=== PATIENT | female | born 1965 | race Caucasian/White ===

== ENCOUNTER → 2018-01-26 08:07 | Outpatient (CLI) | payer OTHER, SELFPAY ==
[2018-01-26 10:18] LABS: Absolute Lymphocyte Count 1.08 X10^3/ul (0.83-4.51); Absolute Neutrophil Count 3.1 X10^3/uL (2.0-7.7); Basophil# 0.02 X10^3/uL; Basophil% 0.4 % (0-1); Eosinophils% 2.1 % (0-5); Hematocrit 40.5 % (37-47); Hemoglobin 13.7 g/dl (12.0-15.0); Lymphocyte # 1.08 X10^3/ul (4.0); Lymphocyte % 22.2 % (19-41); Mean Corp Hgb Conc 33.8 g/gl (32-36); Mean Corpuscular Hgb 30.1 pg (27.0-32.0); Mean Platelet Vol. 9.8 fl (6.2-12.0); Monocyte# 0.56 X10^3/uL; Monocyte% 11.5 % (0-10); Neutrophil % 63.6 % (47-70); Platelet Count 392 K/mm3 (150-450); Red Blood Count 4.55 M/mm3 (4.2-5.4); White Blood Count 4.9 K/mm3 (4.4-11.0)
[2018-01-26 10:22] LABS: POSITIVE COUNT NO; POSITIVE DIFFERENTIAL NO; POSITIVE MORPHOLOGY NO
[2018-01-26 10:27] LABS: ALB/GLOB Ratio 0.8 RATIO (0.9-2.4); AST(SGOT) 15 U/L (15-37); Alanine Aminotransfer ALT/SGPT 19 U/L (13-56); Albumin, Serum 3.4 g/dL (3.2-5.0); Alkaline Phosphatase 61 U/L (45-117); Anion Gap 7 (5-15); BUN 15 mg/dL (7-18); BUN/Creat Ratio 13.9 RATIO (10-20); Calcium,Total 8.7 mg/dL (8.5-10.1); Chloride 105 mmol/L (98-107); Creatinine, Serum 1.08 mg/dL (0.55-1.02); EST Glomerular Filtration Rate 57 mL/min (>60); Est Glom Filt Rate - Afr Amer 69 mL/min (>60); Globulin 4.1 g/dL (2.2-4.2); Glucose 78 mg/dL (74-106); Potassium 3.5 mmol/L (3.5-5.1); Protein, Total 7.5 g/dL (6.4-8.2); Sodium Level 137 mmol/L (136-145)
== END ==
PROVIDERS: Family Provider Family Medicine; PCP Family Medicine; Visit Provider Family Medicine
DX: R10.12 Left upper quadrant pain (principal); I10 Essential (primary) hypertension
CPT/HCPCS: 36415; 80053; 85025

== ENCOUNTER → 2018-07-06 08:42 | Outpatient (CLI) | payer OTHER, SELFPAY ==
[2018-07-06 11:12] LABS: Anion Gap 9 (5-15); BUN 14 mg/dL (7-18); BUN/Creat Ratio 12.3 RATIO (10-20); Calcium,Total 8.8 mg/dL (8.5-10.1); Chloride 102 mmol/L (98-107); Cholesterol 221 mg/dL (200); Creatinine, Serum 1.14 mg/dL (0.55-1.02); EST Glomerular Filtration Rate 53 mL/min (>60); Est Glom Filt Rate - Afr Amer 64 mL/min (>60); Glucose 90 mg/dL (74-106); High Density Lipoprotein 53 mg/dL; Sodium Level 137 mmol/L (136-145); Triglycerides 149 mg/dL; Very Low Density Lipoprotein 30 mg/dL (5-40)
== END ==
PROVIDERS: Family Provider Family Medicine; PCP Family Medicine; Referring Provider Family Medicine; Visit Provider Family Medicine
DX: B35.1 Tinea unguium (principal); E78.00 Pure hypercholesterolemia, unspecified
CPT/HCPCS: 36415; 80048; 80061

== ENCOUNTER 2019-02-07 13:36 | Emergency (ER) | payer OTHER, SELFPAY ==
[2019-02-07 13:37] VITALS: BP 165/90; PULSE 66; RESP 16; TEMP 36.6; O2SAT 99; BMI 37.6
--- NOTE | 2019-02-07 14:14 | CT_ITS ---
STUDY: CT BRAIN WITHOUT CONTRAST REASON FOR EXAM: Female, 53 years old. Dizziness, recent fall RADIATION DOSAGE (If Supplied By Facility): CTDIvol = ( 44.99 ) mGy, DLP = ( 711.75 ) mGycm TECHNIQUE: Transaxial CT imaging of the brain was performed without administration of intravenous contrast material. Individualized dose optimization techniques were used for this CT. COMPARISON: No relevant priors. FINDINGS: Normal soft tissue structures. Normal calvarium. Normal size ventricles and extra-axial spaces for the patient's age. Normal white matter tracts of the cerebral hemispheres. Normal basal ganglia and thalami. Normal brainstem. Normal cerebellum. There is no intracranial hemorrhage. There are no findings of an acute ischemic infarction. Normal visualized paranasal sinuses. CT/Brain/Head without Contrast IMPRESSION: Normal unenhanced CT scan of the brain. Electronically Signed: Johny Syed MD at 15:03 EDT , Service support ,
--- NOTE | 2019-02-07 14:14 | EKG12_ITS ---
Test Reason : DIZZINESS Blood Pressure : / mmHG Vent. Rate : 064 BPM Atrial Rate : 064 BPM P-R Int : 170 ms QRS Dur : 090 ms QT Int : 394 ms P-R-T Axes : 029 -21 -11 degrees QTc Int : 406 ms Normal sinus rhythm Nonspecific T wave abnormality Poor R-Wave Progression Abnormal ECG Confirmed by NELLI BAZAN, BATSHEVA ([id number]), videotape editor REYES RAMOS ([id number]) on 02/10/2019 9:11:07 AM Referred By: YEMI Confirmed By:BATSHEVA AIKEN MD
--- NOTE | 2019-02-07 14:21 | PCA ---
NO OLD EKG
--- NOTE | 2019-02-07 14:28 | ED.VIS.GEN ---
History of Present Illness Chief Complaint: Dizziness Informant: Patient, Family Onset: Today Timing: Intermittent Quality: dizzy Location: head Current Severity: Mild Maximum Severity: Severe Worsened by: lying down Relieved by: nothing in particular Narrative: Patient felt dizzy today. It was episodic. The first episode was while she was sitting at a campground picnic table playing cards. She does not remember turning her head or any other position changes or anything else to trigger the symptoms. They gradually went away. [place] like spinning. She later laid down and had another episode of spinning and felt that she was going to blackout/have syncope. She had no thoracic symptoms or palpitations. No headache, earache, tinnitus, otorrhea, no nausea/vomiting/abdominal pain/diarrhea. No recent URI in the last month or so. No hospitalization or surgery recently. No other recent illnesses or medication additions/changes. She is a relatively poor historian and her answers most questions for her. She has no reason to feel dehydrated recently. - Past Medical History (1) Polycystic kidney disease Status: Chronic (2) Hypertension Status: Chronic Past Medical History - Allergies and Home Meds Allergies/Adverse Reactions: Allergies No Known Allergies Allergy (Verified 02/07/19 13:37) Primary Care Physician: Ede Meier MD [Primary Care Provider] - Smoking Status: Never smoker Review of Systems General: Reports: Malaise, - - dizzy; see HPI. Denies: Chills, Fever, Sweats Eyes: Denies: Visual changes - bilaterally, Diplopia ENT: Denies: Bilateral ear pain, Rhinorrhea, Sore throat Cardiovascular: Denies: Chest pain, Palpitations, Heart racing Respiratory: Denies: Dyspnea, Cough, Dyspnea on exertion Gastrointestinal: Denies: Abdominal pain, Nausea, Vomiting, Diarrhea, Melena, Hematochezia Genitourinary: Denies: Dysuria, Hematuria, Frequency Musculoskeletal: Reports: Swelling - BLE chronic. Denies: Back pain, Extremity Pain Skin: Denies: Rash, Wounds Neurological: Denies: Headache, Weakness, Numbness Physical Exam Vital Signs/Narrative: Vital Signs Temp Pulse Resp BP Pulse Ox 02/07/19 13:37 97.8 F 66 16 165/90 H 99 Inital Vital Signs reviewed: Yes General: Well nourished, Well developed, No Acute Distress Head: Normocephalic, Atraumatic Eyes: Perrl, EOMI, - - no nystagmus -- horiz, vert, or rotatory ENT: Moist mucous membranes, No rhinorrhea, TM's clear Neck: Supple, Nontender Cardiovascular: Regular rate, Regular rhythm, No murmurs, Normal S1, Normal S2. Negative for: Tachycardia Respiratory: No distress, CTA bilaterally, Chest nontender Abdomen: Soft, Nontender, Nondistended, Normal bowel sounds Back: Nontender, Normal Inspection Extremities: Nontender, Edema - nonpitting, BLE, symmetric. Negative for: Calf Tenderness Skin: Normal color, No rash, No Trauma Neurological: Alert, Oriented x3, Cranial nerves II-XII grossly intact, Normal Strength, Normal Sensation, Normal DTR, - - nml HTS and FTN bilat Psychological: Normal affect, Normal Mood Diagnostic/Tx/Re-eval - Rhythm Strip Rhythm Strip: Sinus Rhythm Rate: 65 Ectopy: None - EKG Initial EKG Interpretation: Sinus Rhythm, No Acute Injury Pattern, Non-Specific ST Changes - Diffuse - Medical Decision Making Patient was given meclizine and IV fluids. Orthostatics were negative. The rest of her work-up is negative including EKG and troponin. On reevaluation she feels better. I laid her down and did a [place] and it was negative both sides, we walked her and it was asymptomatic. She was offered admission but prefers to go home and I think that is fine. Could be peripheral vertigo, I am less suspicious of central vertigo although the history is fairly vague. Will prescribe her meclizine and advised she follow-up for persistent symptoms or return to the ER and they are comfortable with this plan. ED Disposition - Plan for ED Patient: Disposition: Home or Assisted Living Diagnosis: Vertigo Instructions: ED Vertigo Unspecified Prescriptions: Meclizine HCl [Antivert] 25 mg PO 4X/DAY PRN PRN #20 tab PRN Reason: Dizziness Referrals: Ede Meier MD [Primary Care Provider] - 3-5 Days if not improving
[2019-02-07 14:31] LABS: Absolute Lymphocyte Count 1.31 X10^3/ul (0.83-4.51); Absolute Neutrophil Count 3.9 X10^3/uL (2.0-7.7); Basophil# 0.02 X10^3/uL; Basophil% 0.3 % (0-1); Eosinophil# 0.19 X10^3/uL; Eosinophils% 3.1 % (0-5); Hematocrit 40.3 % (37-47); Hemoglobin 13.5 g/dl (12.0-15.0); Lymphocyte # 1.31 X10^3/ul (4.0); Lymphocyte % 21.3 % (19-41); Mean Corp Hgb Conc 33.5 g/gl (32-36); Mean Corpuscular Hgb 29.7 pg (27.0-32.0); Mean Corpuscular Volume 88.8 fL (81-99); Mean Platelet Vol. 9.2 fl (6.2-12.0); Monocyte% 11.4 % (0-10); Neutrophil # 3.92 X10^3/uL (2.7-7.7); Neutrophil % 63.7 % (47-70); POSITIVE COUNT NO; POSITIVE DIFFERENTIAL NO; POSITIVE MORPHOLOGY NO; Platelet Count 361 K/mm3 (150-450); RBC Distribution Width CV 12.9 % (11.6-14.6); RBC Distribution Width SD 41.3 fl (35.1-43.9); Red Blood Count 4.54 M/mm3 (4.2-5.4); White Blood Count 6.2 K/mm3 (4.4-11.0)
[2019-02-07 14:45] LABS: Anion Gap 6 (5-15); BUN 20 mg/dL (7-18); BUN/Creat Ratio 18.5 RATIO (10-20); Calcium,Total 8.5 mg/dL (8.5-10.1); Chloride 105 mmol/L (98-107); Creatinine, Serum 1.08 mg/dL (0.55-1.02); EST Glomerular Filtration Rate 57 mL/min (>60); Est Glom Filt Rate - Afr Amer 68 mL/min (>60); Estimated Creatinine Clearance 48.19 ml/min; Glucose 86 mg/dL (74-106); Potassium 3.8 mmol/L (3.5-5.1); Sodium Level 138 mmol/L (136-145)
[2019-02-07] MEDS: Meclizine HCl 25 MG Tablet PO (14:45)
[2019-02-07] MEDS: 0.9% Normal Saline 1,000 ML 999 ML IV (14:45)
[2019-02-07 15:25] VITALS: BP 134/83; BP 151/97; BP 164/93; PULSE 62; PULSE 67; PULSE 69
[2019-02-07 18:30] VITALS: BP 128/90; PULSE 67; RESP 17; O2SAT 97
== END 2019-02-07 18:31 | disposition home or self-care (01) ==
PROVIDERS: Emergency Provider Emergency Medicine; Family Provider Family Medicine; PCP Family Medicine
DX: R42 Dizziness and giddiness (principal); Q61.3 Polycystic kidney, unspecified; I10 Essential (primary) hypertension; Z79.899 Other long term (current) drug therapy
CPT/HCPCS: 70450; 80048; 84484; 85025; 93005; 99285; A4216

== ENCOUNTER → 2019-03-15 16:56 | Outpatient (CLI) | payer OTHER, SELFPAY ==
[2019-03-15 17:22] LABS: Hematocrit 40.7 % (37-47); Hemoglobin 13.9 g/dl (12.0-15.0); Mean Corp Hgb Conc 34.2 g/gl (32-36); Mean Corpuscular Hgb 30.1 pg (27.0-32.0); Mean Corpuscular Volume 88.1 fL (81-99); Mean Platelet Vol. 9.5 fl (6.2-12.0); Platelet Count 351 K/mm3 (150-450); RBC Distribution Width CV 13.2 % (11.6-14.6); RBC Distribution Width SD 42.7 fl (35.1-43.9); Red Blood Count 4.62 M/mm3 (4.2-5.4); White Blood Count 5.1 K/mm3 (4.4-11.0)
[2019-03-15 17:32] LABS: Scan Indicated on CBC? Y/N NO
[2019-03-15 18:11] LABS: Thyroid Stim Hormone (TSH) 1.79 uIU/mL (0.358-3.74)
== END ==
PROVIDERS: Visit Provider Obstetrics & Gynecology
DX: N92.0 Excessive and frequent menstruation with regular cycle (principal)
CPT/HCPCS: 36415; 84443; 85027

== ENCOUNTER → 2019-03-31 07:39 | Outpatient (CLI) | payer OTHER, SELFPAY ==
[2019-03-31 10:43] LABS: BUN 16 mg/dL (7-18); Creatinine, Serum 1.23 mg/dL (0.55-1.02); EST Glomerular Filtration Rate 49 mL/min (>60); Est Glom Filt Rate - Afr Amer 59 mL/min (>60)
== END ==
PROVIDERS: Family Medicine; Family Provider Family Medicine; PCP Family Medicine; Referring Provider Family Medicine; Visit Provider Family Medicine
DX: Q61.2 Polycystic kidney, adult type (principal)
CPT/HCPCS: 36415; 82565; 84520

== ENCOUNTER 2019-04-14 10:49 | Day surgery (SDC) | payer OTHER, SELFPAY ==
--- NOTE | 2019-03-20 01:22 | PCM.HPOB.BLA ---
History and Physical Date of Admission: 04/14/19 HISTORY OF PRESENT ILLNESS: Marni Tomas, a 53 year old female 2 0 1 0 2, presented for: -- GynProblem-Estab Pt Marni is here for discussion of irregular bleeding. Reports menses had been monthly and regular until about 3 months ago when she started spotting/bleeding prior to menses and bleeding has been prolonged and irregular. She denies any pain or cramping with this. States she works a lot of hours and drives 70 minutes to and from work. LMT -- heavy menses which began 3 months ago. Marni claims it started suddenly and has been present 12 weeks. It is located in the uterus. Severity is mild. An associated sign and symptom is irregular bleeding. As above. Here for evaluation of heavy bleeding and clotting. She has had regular, monthly periods and has not skipped any cycles. In the last three months the bleeding has been heavier and more prolonged. She is past due for pap, last in 2014. No labs done yet to evaluate for anemia, menopause or thyroid disorder. Reviewed diff dx of heavy and irregular periods. May be due to perimenopause. Recommend labs today: CBC and TSH if not done recently Discussed options for management of the issue. Needs further evaluation. SONO results from today reviewed: UTERUS: 8.5 x 5.1 x 4.5 cm. ENDOMETRIAL ECHO: 1.3 cm. (thickened) RIGHT OVARY: 2.7 x 1.8 x 1.7 cm and contains a 1.8 x 1.4 x 1.6 cm simple cyst. LEFT OVARY: Not seen and adnexa appears normal. EB ALLERGIES: NKDA MEDICATIONS HISTORY: Patient is also takin. lisinopril 10 mg tablet, 1 tab once daily REVIEW OF SYSTEMS: GENERAL - Denies fever, or chills SKIN - Denies skin changes EYES - Denies visual changes EARS - Denies difficulty hearing NOSE - Denies nasal congestion or bleeding MOUTH - Denies sore throat or difficulty swallowing NECK - Denies pain or swelling RESPIRATORY - Denies shortness of breath or wheezing CARDIOVASCULAR - Denies palpitations or chest pain GASTROINTESTINAL - Denies nausea, vomiting, diarrhea, constipation GENITOURINARY - heavy, irregular bleeding MUSCULOSKELETAL - Denies joint or muscle pain NEUROLOGICAL - Denies localized numbness or weakness PSYCHIATRIC - Denies depression or anxiety ENDOCRINE - Denies heat or cold intolerance, weight loss or gain HEMATO-IMMUNOLOGIC - Denies excessive bleeding with cuts PAST HISTORY: Breast/Ovarian/Colon Cancers - Maternal Grandmother had Colon Cancer Infections - Chicken pox Illnesses - none Accidents - no injuries of consequence History of Abnormal PAPS - Denies Hospitalizations - None by ; SURGICAL HISTORY: 1. 08/22/2006 Shannan Guzmán M.D. Prior 2. d and c 2004 for blighted ovum 3. , 12/14 Shannan Guzmán M.D. FTP MENSTRUAL HISTORY: LMP Known?- Approximate-Month Known Amount/Duration - 8-10, Regularity - Irregular, Frequency - monthly days, LMP - 02/27/19, Age Onset Menarche - 12 PAST PREGNANCIES: Total Pregnancies - 3; Full Term Pregnancies - 2; Premature - 0; Abortions, Induced - 0; Abortions, Spontaneous - 1; Ectopics - 0; Multiple Births - 0; Living Children - 2 FAMILY HISTORY: Father - FH: Hypertension; Father - Renal disorder; Father - Age 52, Brain disorder; Brother - FH: Polycystic kidney; Brother - FH: Hypertension; Sister - FH: Hypertension; Sister - FH: Polycystic kidney; Maternal Grandparent - FH: Cancer of colon; Maternal Grandparent - FH: Diabetes mellitus type 2; Maternal Grandparent - FH: Hypertension; SOCIAL HISTORY: Alcohol Use - RARELY Smoking - used to smoke but quit Diet - no special diet Lifestyle - Exercise - none Seat Belt Use - always Employer - [employer] Job Description - Electrical Lineworker Illicit Drug Use - denies use of street drugs Sexual Activity - Hours Worked - lots of hours, well over 60 Spouse-Sig Other Name - Naseem Spouse-Sig Other Occupation - Mortgage Closing Clerk Children Name(s) - Shannan Alonzo (elham) Control - Vasectomy PHYSICAL EXAMINATION BP- 140/94 Sitting, Right arm, regular cuff Weight- 199.00 lbs Height- 61.00 inch BMI:37.68 CONSTITUTIONAL - NAD, well nourished, and well developed HEENT - Normocephalic, PERRLA, EOMI NECK - no nuchal rigidity EXTREMITIES - No edema or calf tenderness NEUROLOGICAL - Cranial nerves II-XII grossly intact PSYCHIATRIC - A and O to time, place, person, mood and affect ASSESSMENT: 1. Excessive Bleeding In The Premenopausal Period PLAN BY DIAGNOSIS: 1. Excessive Bleeding In The Premenopausal Period Diff dx reviewed. TSH, and CBC both normal. Not anemic. 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 EMB vs D and C needed for tissue diagnosis, to rule out endometrial hyperplasia / polyps/ cancer Advised surgery to evaluate, given the thickened endometrial stripe. Plan for hysteroscopy, possible polypectomy and D and C. R,B,A discussed and questions answered re this procedure. Will schedule procedure. RTO for PAT, preop appt. The visit was approximately 20 minutes in length with most of the time spent in discussion and counseling.
[2019-04-14] VITALS (7 sets, daily range): BP systolic 106–143; BP diastolic 72–88; PULSE 62–75; RESP 16; TEMP 36.1–36.4; O2SAT 95–100; BMI 35.9
--- NOTE | 2019-04-14 | EMB_PTH ---
PATIENT: ROLAND KHAN [place] [facility] [place][id number] AGE/SX: 53/F ROOM: RE04/14/[address]: Dr. Shannan Guzmán MD : 1965 BED: DIS: 04/14/2019 SPEC #: [id number] RECD: 04/14/19 13:58 STATUS: ADELE RAMIRO #: [id number] [place]: 04/14/19 00:[address]: Shannan Guzmán DEPT: SURGICAL PATHOLOGY RECD BY: Sesar Dean ENTERED: 04/14/19 13:59 SP TYPE: ENDOM BX/C DIAMOND DR: Dr. Ede Meier MD Tissues: Endometrium, NOS Procedures: Surgery Specimen Level IV HEADER OPERATION: Hysteroscopy, dilation and curettage PRE-OP DIAGNOSIS: Excessive bleeding in the premenopausal period TISSUE SUBMITTED: Endometrial curettings MICROSCOPIC DIAGNOSIS Endometrial curettings: Proliferative endometrium. SJ:dionne 04/15/19 MICROSCOPIC DESCRIPTION Slides are reviewed. GROSS DESCRIPTION Received in fixative is one container labeled with the patient's name and designated endometrial curettings. The specimen consists of multiple fragments of hemorrhagic mucoid tissue that in aggregate measure 3 x 2.5 x 0.1 cm. The entire specimen is submitted in one cassette. / SJ:rg 04/14/19 TC:5 CPT: 57402
[2019-04-14 11:12] LABS: Internal QC Validated? YES +Cl - CLEAR BKGD; Pregnancy, Urine Negative Negative
--- NOTE | 2019-04-14 12:13 | DCINST_ITS ---
Discharge Diet: No Restrictions Discharge Activity: May Shower, May Take a Tub Bath May resume sexual activity in: No Restrictions Lifting Restrictions: no restrictions Call your doctor if you observe: Fever of 101 or Higher, Using more than one pad per hour, Uncontrolled pain Additional Instructions: Take tylenol as needed for pain. Allergies/Adverse Reactions: Allergies No Known Allergies Allergy (Verified 04/09/19 10:43) Medications to take at Discharge Lisinopril [Zestril] 10 mg PO DAILY 05/20/17 Cholecalciferol (Vitamin D3) [Vitamin D3] 2,000 unit PO DAILY 04/09/19 Multivitamin [Multiple Vitamins] 1 ea PO DAILY 04/09/19 Primary Care Physician: Ede Meier MD [Primary Care Provider] - Test Results: Test results from this visit will be discussed in further detail at your follow- up appointment, if applicable. Please Follow Up With: Shannan Guzmán MD - [phone] When: in 1 to 2 wk for postop appointment. Proposed Discharge Date: 04/14/19
[2019-04-14] MEDS: Lubricating Jelly 60 GM Tube 30 GM TOPICAL (12:39)
[2019-04-14] MEDS: Acetaminophen 500 MG Tablet 1000 MG PO (13:40)
[2019-04-14] MEDS: oxyCODONE 5 MG Tablet PO (13:40)
--- NOTE | 2019-04-14 15:45 | PCM.OPRPT ---
Report of Operation Date of Procedure: 04/14/19 Pre-Operative Diagnosis: Excessive Bleeding In The Premenopausal Period Thickened endometrial stripe on pelvic ultrasound Post-Operative Diagnosis: Same Atrophic appearing endometrium Surgery/Procedure Performed:: Hysteroscopy, Dilation and curettage Description of Surgical Findings:: Findings: Nonparous appearing cervix Normal appearing atrophic endometrium. Tubal ostia visualized no polyps , no submucous fibroids Type of Anesthesia:: Local MAC Anesthesiologist: Anup Vicente Specimen's removed: uterine curettings Drains: Serjio Hutchison Estimated Blood Loss (mL): 20 cc Fluids Replaced: LR Description of Procedure: Narrative account After the R,B,Alternatives of the procedure were reviewed with the patient, informed consent was obtained. The patient was taken to the operating room with an IV running and placed in dorsal supine position of the operating table. She was given MAC IV sedation and repositioned to the dorsal lithotomy position and prepped and draped in the usual sterile fashion. A small graves speculum was placed into the vagina and the cervix was brought into view. The cervix was nonparous appearing. The cervix was instilled with 10 cc of 1% lidocaine as a paracervical block using a 20 G spinal needle.A single toothed tenaculum was applied to the anterior lip of the cervix. The cervix was then gently probed and sequentially dilated to allow admission of the hysteroscope into the endometrial cavity. The hysteroscopy was performed with findings noted as above. There was normal appearing, atrophic endometrium. A sharp curettage was then performed. Minimal tissue was obtained and set aside for later pathology review. Excellent hemostasis was noted. The single toothed tenaculum was removed from the cervix and a RayTec was used to remove any remaining tissue and blood from the upper vagina and cervix. The procedure was terminated. The speculum was removed. The patient was returned to dorsal supine position and awakened from IV sedation and transferred to her recovery room bed in stable condition after tolerating the procedure well. Sponge, lap, needle and instrument counts were correct x two. medications given intraoperatively included 10 cc of 1% lidocaine without epinephrine instilled as a paracervical block. For a complete listing of the medications given intraoperatively, see the anesthesia record. - Complications none - Admit VTE Documentation VTE Present on Admission: No VTE Mechan Device Prophylaxis: SCD's VTE Pharm Prophylaxis ordered?: No
== END 2019-04-14 14:02 | disposition home or self-care (01) ==
LOC: SDC 10:51 → AC 10:53
PROVIDERS: Anesthesiology; Family Provider Family Medicine; PCP Family Medicine; Referring Provider Obstetrics & Gynecology; Visit Provider Obstetrics & Gynecology
PROC: 0UDB8ZZ Extraction of Endometrium, Via Natural or Artificial Opening Endoscopic (ICD-10-PCS; CPT 58558; principal; 2019-04-14 12:20)
DX: N92.4 Excessive bleeding in the premenopausal period (principal); N92.6 Irregular menstruation, unspecified; I10 Essential (primary) hypertension; Q61.3 Polycystic kidney, unspecified; Z87.891 Personal history of nicotine dependence; Z86.2 Personal history of diseases of the blood and blood-forming organs and certain disorders involving the immune mechanism
CPT/HCPCS: 00952; 58558; 81025; 88305; J7120

== ENCOUNTER → 2019-06-21 07:22 | Outpatient (CLI) | payer OTHER, SELFPAY ==
[2019-04-14 11:14] VITALS: BMI 35.9
[2019-06-21 10:02] LABS: Absolute Lymphocyte Count 1.27 X10^3/uL (0.83-4.51); Absolute Neutrophil Count 3.1 X10^3/uL (2.0-7.7); Basophil# 0.07 X10^3/uL; Basophil% 1.3 % (0-1); Color, Urine Yellow (Yellow); Eosinophil# 0.39 X10^3/uL; Eosinophils% 7.3 % (0-5); Glucose, Dipstick Normal (Normal); Hematocrit 41.4 % (37-47); Hemoglobin 13.4 g/dL (12.0-15.0); Ketone-Dipstick Negative (Negative); Leukocyte Esterase-Dipstick Negative /ul (Negative); Lymphocyte # 1.27 X10^3/ul (4.0); Lymphocyte % 23.6 % (19-41); Mean Corp Hgb Conc 32.4 g/dL (32-36); Mean Corpuscular Hgb 29.6 pg (27.0-32.0); Mean Corpuscular Volume 91.6 fL (81-99); Mean Platelet Vol. 9.1 fl (6.2-12.0); Monocyte# 0.55 X10^3/uL; Monocyte% 10.2 % (0-10); NRBC Flagged by Analyzer 0 % (0-5); Neutrophil # 3.07 X10^3/uL (2.7-7.7); Neutrophil % 57.2 % (47-70); Nitrite-Dipstick Negative (Negative); Occult Blood-Urine Negative /ul (Negative); Platelet Count 331 K/mm3 (150-450); Protein-Dipstick Negative (Negative); RBC Distribution Width CV 12.8 % (11.6-14.6); RBC Distribution Width SD 42.5 fl (35.1-43.9); Red Blood Count 4.52 M/mm3 (4.2-5.4); Specific Gravity, Urine 1.015 (1.002-1.030); Urine Bilirubin Dipstick Negative (Negative); Urine Clarity Clear (Clear); Urine Urobilinogen Normal (Normal); White Blood Count 5.4 K/mm3 (4.4-11.0)
[2019-06-21 10:12] LABS: Protein, Urine (Random) 11.2 mg/dL (<11.9); Protein:Creat Ratio 113 mg/g CRE (0-200)
[2019-06-21 10:16] LABS: ALB/GLOB Ratio 0.8 RATIO (0.9-2.4); AST(SGOT) 31 U/L (15-37); Alanine Aminotransfer ALT/SGPT 49 U/L (13-56); Albumin, Serum 3.2 g/dL (3.2-5.0); Alkaline Phosphatase 151 U/L (45-117); Anion Gap 8 (5-15); BUN 15 mg/dL (7-18); Calcium,Total 8.5 mg/dL (8.5-10.1); Chloride 105 mmol/L (98-107); Creatinine, Serum 1.15 mg/dL (0.55-1.02); EST Glomerular Filtration Rate 53 mL/min (>60); Est Glom Filt Rate - Afr Amer 64 mL/min (>60); Globulin 3.8 g/dL (2.2-4.2); Glucose 86 mg/dL (74-106); Magnesium 1.8 mg/dL (1.6-2.6); Potassium 3.7 mmol/L (3.5-5.1); Sodium Level 140 mmol/L (136-145); Uric Acid 4.6 mg/dL (2.6-6.0)
== END ==
PROVIDERS: Family Provider Family Medicine; PCP Family Medicine
DX: I12.9 Hypertensive chronic kidney disease with stage 1 through stage 4 chronic kidney disease, or unspecified chronic kidney disease (principal); N18.3 Chronic kidney disease, stage 3 (moderate); Q61.2 Polycystic kidney, adult type
CPT/HCPCS: 36415; 80053; 81002; 82570; 83735; 84100; 84156; 84550; 85025

== ENCOUNTER → 2019-06-24 07:15 | Outpatient (CLI) | payer OTHER, SELFPAY ==
[2019-04-14 11:14] VITALS: BMI 35.9
[2019-06-24 10:52] LABS: AST(SGOT) 40 U/L (15-37); Alanine Aminotransfer ALT/SGPT 54 U/L (13-56); Albumin, Serum 3.5 g/dL (3.2-5.0); Alkaline Phosphatase 152 U/L (45-117); Bilirubin, Direct 0.11 mg/dL (0.00-0.30); Protein, Total 7.5 g/dL (6.4-8.2)
== END ==
PROVIDERS: Family Provider Family Medicine; PCP Family Medicine
DX: Q61.2 Polycystic kidney, adult type (principal)
CPT/HCPCS: 36415; 80076

== ENCOUNTER 2020-05-03 07:56 | Emergency (ER) | payer OTHER, SELFPAY ==
[2019-04-14 11:14] VITALS: BMI 35.9
[2020-05-03 07:57] VITALS: BP 161/114; PULSE 72; RESP 17; TEMP 36.2; O2SAT 99; BMI 38.5
[2020-05-03 08:06] VITALS: BP 154/126; RESP 16
--- NOTE | 2020-05-03 08:22 | EKG12_ITS ---
Test Reason : FATIGUE Blood Pressure : / mmHG Vent. Rate : 068 BPM Atrial Rate : 068 BPM P-R Int : 152 ms QRS Dur : 092 ms QT Int : 388 ms P-R-T Axes : 008 -20 -21 degrees QTc Int : 412 ms Normal sinus rhythm Septal infarct , age undetermined Abnormal ECG Confirmed by PEYTON MIRELES ([id number]), purchase request editor TISH ROCHA ([id number]) on 05/08/2020 9:39:05 AM Referred By: KAREEM Confirmed By:PEYTON MIRELES
[2020-05-03] MEDS: 0.9% Normal Saline 1,000 ML 1000 ML IV (08:59)
[2020-05-03] MEDS: Ondansetron 4 MG/2 ML Vial IV (08:59)
[2020-05-03 09:02] VITALS: BP 140/80; BP 149/94; BP 157/93; PULSE 62; PULSE 64; PULSE 71
[2020-05-03 09:05] LABS: Mucous, Urine 0 SEEN /hpf (<or=2+); Red Blood Cells-Urine 0 SEEN /hpf (0-5); White Blood Cells 0 SEEN /hpf (0-5)
[2020-05-03 09:10] LABS: Absolute Lymphocyte Count 0.89 X10^3/uL (0.83-4.51); Absolute Neutrophil Count 3.8 X10^3/uL (2.0-7.7); Basophil# 0.03 X10^3/uL; Basophil% 0.6 % (0-1); Eosinophil# 0.18 X10^3/uL; Eosinophils% 3.4 % (0-5); Hematocrit 44.8 % (37-47); Hemoglobin 14.4 g/dL (12.0-15.0); Lymphocyte # 0.89 X10^3/ul (4.0); Lymphocyte % 16.6 % (19-41); Mean Corp Hgb Conc 32.1 g/dL (32-36); Mean Corpuscular Hgb 29.4 pg (27.0-32.0); Mean Corpuscular Volume 91.6 fL (81-99); Mean Platelet Vol. 9.2 fl (6.2-12.0); Monocyte# 0.49 X10^3/uL; Monocyte% 9.1 % (0-10); NRBC Flagged by Analyzer 0 % (0-5); Neutrophil # 3.75 X10^3/uL (2.7-7.7); Neutrophil % 69.9 % (47-70); Platelet Count 341 K/mm3 (150-450); RBC Distribution Width CV 12.6 % (11.6-14.6); RBC Distribution Width SD 42.2 fl (35.1-43.9); Red Blood Count 4.89 M/mm3 (4.2-5.4); White Blood Count 5.4 K/mm3 (4.4-11.0)
[2020-05-03 09:21] LABS: Color, Urine Yellow (Yellow); Glucose, Dipstick Normal (Normal); Ketone-Dipstick Negative (Negative); Leukocyte Esterase-Dipstick Negative /ul (Negative); Nitrite-Dipstick Negative (Negative); Occult Blood-Urine Negative /ul (Negative); Protein-Dipstick Negative (Negative); Urine Bilirubin Dipstick Negative (Negative); Urine Clarity Sl. Cloudy (Clear); Urine Urobilinogen Normal (Normal)
[2020-05-03 09:27] LABS: ALB/GLOB Ratio 0.9 RATIO (0.9-2.4); AST(SGOT) 21 U/L (15-37); Alanine Aminotransfer ALT/SGPT 32 U/L (13-56); Albumin, Serum 3.8 g/dL (3.2-5.0); Alkaline Phosphatase 115 U/L (45-117); Anion Gap 3 (5-15); BUN 19 mg/dL (7-18); BUN/Creat Ratio 13.1 RATIO (10-20); Calcium,Total 9.2 mg/dL (8.5-10.1); Chloride 110 mmol/L (98-107); Creatinine, Serum 1.45 mg/dL (0.55-1.02); EST Glomerular Filtration Rate 40 mL/min (>60); Est Glom Filt Rate - Afr Amer 49 mL/min (>60); Estimated Creatinine Clearance 33.86 ml/min; Globulin 4.1 g/dL (2.2-4.2); Glucose 105 mg/dL (74-106); Potassium 4.1 mmol/L (3.5-5.1); Protein, Total 7.9 g/dL (6.4-8.2); Sodium Level 141 mmol/L (136-145)
[2020-05-03 09:27] LABS: Squamous Epithelial Cells - UA 0-5 SEEN /hpf (5-10)
[2020-05-03 09:28] LABS: Bacteria 1+ /hpf (None Seen)
--- NOTE | 2020-05-03 09:58 | ED.DCSUM_ITS ---
- ER Visit Summary Date of Service: 05/03/20 Chief Complaint: [Not feeling well] History of Present Illness: The patient is a 54 F [presents to the emergency department complaint not feeling well this morning. Patient states that she started last evening with some nausea. Patient just felt tired this morning. Patient checked her blood pressure was 140/109 this morning. Also she says that she is had a rash for about 1-1/2 to 2 weeks. Patient has been doing some outdoor activities and think she may have been possibly exposed to poison harpal or oak. Patient describes the rash as pruritic and on her chest and arms and legs. She is had no fever or cough. She denies any body aches. She denies sore throat. Patient has had 2 episodes of diarrhea this morning. She denies any chest pain or shortness of breath. She denies abdominal pain.] Physical Examination: [HEENT-PERRLA, EOMI. Cranial nerves II through XII grossly intact. TMs clear. Mucous membranes moist. No adenopathy. Cardiovascular-regular rate and rhythm without murmur or ectopy Lungs-clear to auscultation, chest wall stable without crepitus or subcu emphysema Abdomen-normoactive bowel sounds, soft, nontender, no rebound or rigidity, no peritoneal signs. Skin exam-patient has some patchy erythematous rash noted on the lower extremities as well as the trunk and arms which has some linearity to it. Rash is typical of a contact Mattie dermatitis. Extremities-intact ?4, normal range of motion, normal pulses, atraumatic] Test Results: [EKG obtained on arrival shows sinus rhythm with a ventricular rate of 68 bpm with old septal infarct noted. When compared with prior EKG no s ignificant changes noted. CBC with differential obtained was normal. Chemistries unremarkable. BUN was 19 and creatinine 1.45. Troponin is less than 0.015.] Emergency Department Course and Treatment: [Patient had an IV line established. She was given a liter normal same fluid bolus. Patient given Zofran 4 mg IV. Orthostatic vital signs were negative.] Treatment Plan: [Patient advised to push fluids. Patient to follow-up with her primary care physician within next 3 to 5 days.] Disposition: [Discharged home in stable condition] Impression: [Nausea Hypertension-established] This note was generated with [employer] software. It may contain incorrect words, spelling, and punctuation that were not noted in review of the chart prior to signing ED Disposition - Plan for ED Patient: Referrals: Artem De La Paz MD [Primary Care Provider] -
--- NOTE | 2020-05-03 10:01 | ED.DEP ---
ED Disposition - Plan for ED Patient: Instructions: ED Weakness UKO, ED Hypertension Established Prescriptions: Ondansetron [Zofran Odt] 4 mg PO Q8H PRN PRN #10 tab PRN Reason: Nausea Prescription Printed Referrals: Artem De La Paz MD [Primary Care Provider] - 3-5 Days
--- NOTE | 2020-05-03 10:03 | ED.DEP ---
ED Disposition - Plan for ED Patient: Instructions: ED Hypertension Established, ED Weakness UKO Prescriptions: Ondansetron [Zofran Odt] 4 mg PO Q8H PRN PRN #10 tab PRN Reason: Nausea Prescription Printed Referrals: Artem De La Paz MD [Primary Care Provider] - 3-5 Days
[2020-05-03 10:16] VITALS: BP 137/69; PULSE 62; RESP 15; O2SAT 97
== END 2020-05-03 10:18 | disposition home or self-care (01) ==
LOC: ED 08:45
PROVIDERS: Emergency Provider Emergency Medicine; PCP Family Medicine
DX: R11.0 Nausea (principal); I10 Essential (primary) hypertension
CPT/HCPCS: 80053; 81001; 84484; 85025; 93005; 96374; 99284; J7030; A4216; J2405

== ENCOUNTER → 2021-07-10 07:26 | Outpatient (CLI) | payer OTHER, SELFPAY ==
[2021-07-10 10:04] LABS: Anion Gap 7 (5-15); BUN 19 mg/dL (7-18); BUN/Creat Ratio 14.8 RATIO (10-20); Calcium,Total 8.9 mg/dL (8.5-10.1); Chloride 105 mmol/L (98-107); Cholesterol 184 mg/dL (200); Creatinine, Serum 1.28 mg/dL (0.55-1.02); EST Glomerular Filtration Rate 46 mL/min (>60); Est Glom Filt Rate - Afr Amer 56 mL/min (>60); Glucose 89 mg/dL (74-106); High Density Lipoprotein 55 mg/dL; Sodium Level 137 mmol/L (136-145); Triglycerides 97 mg/dL; Very Low Density Lipoprotein 19 mg/dL (5-40)
[2021-07-10 10:21] LABS: Microalbumin,Random Urine < 5.0 mg/L (NO RANGE EST.)
== END ==
PROVIDERS: PCP Family Medicine; Referring Provider Family Medicine; Visit Provider Family Medicine
DX: Z00.00 Encounter for general adult medical examination without abnormal findings (principal); I10 Essential (primary) hypertension; E55.9 Vitamin D deficiency, unspecified
CPT/HCPCS: 36415; 80048; 80061; 82043; 82306; 82570

== ENCOUNTER 2021-09-17 13:45 | Outpatient (CLI) | payer OTHER, SELFPAY | END 2021-09-17 23:59 | disposition short-term general hospital (02) | LOC: LABSPEC 09-20 13:45 | PROVIDERS: Visit Provider Family Medicine | DX: Z20.822 Contact with and (suspected) exposure to COVID-19 (principal) | CPT/HCPCS: 87635; U0003; U0005 ==